=== PATIENT | male | born 1960 | race African-American/Black ===

== ENCOUNTER → 2020-05-09 | Outpatient (CLI) | payer OTHER ==
[~2020-05-09] MED LIST: AMBEREN; ARGININE500 MG PO; ASPIR 8181 MG PO; ASPIRIN EC81 M1 PO; ATENOLOL; ATENOLOL 25 MG25 M1 PO; CLARITIN10 M2 PO; DEPO-TESTO200 MG/1 M IM; FISH OIL 1,0001 EAC5 PO; FISH OIL 1,0001 EAC7 PO; FLECAINIDE ACE100 MG PO; FLOMAX0.4 MG PO; KEFLEX250 M1 PO; MULTIVITAMINS1 EAC7 PO; NASACORT10.8 ML NASAL; NIACIN 500 MG500 M1; NOVAREL IM; PRAVACHOL40 MG PO; PROTONIX40 M2 PO; RED YEAST RICE600 MG PO; SINGULAIR 10 MG10 M1 PO; SOTALOL80 MG PO; TESTOSTERONE; VERAPAMIL HCL360 MG PO; ZYRTEC10 M5 PO
== END ==
LOC: LAB 11:36
PROVIDERS: ATTEND Specialist
DX: Z01.812 Encounter for preprocedural laboratory examination (principal); Z20.828 Contact with and (suspected) exposure to other viral communicable diseases

== ENCOUNTER → 2020-05-14 | Outpatient (CLI) | payer OTHER ==
[~2020-05-14] VITALS: Ht 167.6 cm; Wt 78.9 kg
--- NOTE | 2020-05-14 12:30 | P ---
[facility] [place] [address] PROCEDURE REPORT Name: MANA RAMIREZ JR Room #: REG BEHZAD Franklin#: [id number] Admission: 05/14/20 Attend Phys: Bhargav Rodriguez Discharge: Date of : 58 Report #: [id number] THIS REPORT FOR: cc: Hussain Hewitt III, MD, III,Hussain Feldman,Bhargav Abreu MD ~ CC: Hussain Feldman DATE OF SERVICE: 05/14/2020 PROCEDURE PERFORMED: Upper endoscopy. HISTORY OF PRESENT ILLNESS: The patient is a 59-year-old male with a history of gastroesophageal reflux disease, been on and off PPI therapies in the past, last time Nexium for 14 days, approximately 2-3 months ago. He does report intermittent heartburn symptoms. Denies any dysphagia. No nausea or vomiting. No NSAID use. DESCRIPTION OF PROCEDURE: The risks and benefits of the procedure were explained to the patient, those risks including but not limited to bleeding, perforation and the risk of sedation. He understood these risks and gave informed consent. Sedation was given using propofol per anesthesia. Next, using a standard Olympus upper endoscope, the scope was placed in the patient's mouth and advanced under direct vision through the esophagus, stomach and into the second portion of the duodenum. The larynx was normal in appearance. The upper and mid esophagus was normal. At the GE junction, there was evidence of grade A erosive esophagitis. Upon entering the stomach, a small hiatal hernia was noted. Overall, the gastric mucosa was normal. The pylorus was normal and patent. The duodenal bulb, first and second portion were all normal. The scope was then withdrawn and the procedure terminated. The patient tolerated the procedure well. IMPRESSION: 1. Grade A erosive esophagitis. 2. Small hiatal hernia. 3. Otherwise, normal upper endoscopy. RECOMMENDATIONS: 1. Would recommend a trial of daily PPI therapy longer. 2. We will proceed with colonoscopy next today. [address] [address] PROCEDURE REPORT Name: MANA RAMIREZ Room #: REG Ellie Franklin#: [id number] Admission: 05/14/20 Attend Phys: Bhargav Rodriguez Discharge: Date of : 58 Report #: [id number] Thank you for allowing me to participate in his care. <ELECTRONICALLY SIGNED> By: Bhargav Feldman MD 05/14/20 1230 [id number] Bhargav Feldman MD /nt
--- NOTE | 2020-05-19 13:56 | P ---
[facility] [place] [address] PROCEDURE REPORT Name: MANA RAMIREZ JR Room #: REG BEHZAD Franklin#: [id number] Admission: 05/14/20 Attend Phys: Bhargav Rodriguez Discharge: Date of : 58 Report #: [id number] THIS REPORT FOR: cc: Hussain Hewitt III, MD, III,Bhargav Watson MD, MD ~ CC: HUSSAIN Feldman DATE OF SERVICE: 05/14/2020 PROCEDURE PERFORMED: Colonoscopy. HISTORY OF PRESENT ILLNESS: The patient is a 59-year-old male who presents today for a screening colonoscopy. He denies any symptoms. No family history of colon cancer. DESCRIPTION OF PROCEDURE: The risks and benefits of the procedure were explained to the patient, those risks including but not limited to bleeding, perforation and the risk of sedation. He understood these risks and gave informed consent. Sedation was given using propofol per Anesthesia. Next, a digital rectal exam was initially performed, which was normal. Next, using a standard Olympus colonoscope, the scope was placed in the patient's anus and advanced under direct vision to the cecum. The overall prep was excellent. The cecum and ileocecal valve were normal in appearance. Ascending, transverse and descending colon were normal. A few small scattered diverticula were noted in the sigmoid colon, otherwise normal. The rectal mucosa was normal. On retroflexion, no abnormalities were noted. The scope was then withdrawn and the procedure terminated. The patient tolerated the procedure well. IMPRESSION: 1. Mild sigmoid diverticulosis. 2. Otherwise, normal colonoscopy. RECOMMENDATIONS: Repeat colonoscopy in 10 years. Thank you for allowing me to participate in his care. <ELECTRONICALLY SIGNED> By: Bhargav Feldman MD 05/19/20 1356 [id number] 1247 Bhargav Feldman MD /nt
== END | disposition home or self-care (01) ==
LOC: GI 07:40
PROVIDERS: ATTEND Specialist
DX: Z12.11 Encounter for screening for malignant neoplasm of colon (principal); K57.30 Diverticulosis of large intestine without perforation or abscess without bleeding; K22.10 Ulcer of esophagus without bleeding; K44.9 Diaphragmatic hernia without obstruction or gangrene; R12 Heartburn; E78.00 Pure hypercholesterolemia, unspecified; G47.30 Sleep apnea, unspecified; N40.0 Benign prostatic hyperplasia without lower urinary tract symptoms; Z98.890 Other specified postprocedural states; Z79.899 Other long term (current) drug therapy
CPT/HCPCS: 62110; 62900